=== PATIENT | female | born 1975 | race Caucasian/White ===

== ENCOUNTER → 2017-01-31 | Outpatient (CLI) | payer MEDICAID ==
[2017-01-31 15:19] LABS: Basophils % (A) 0 %; CH 30.7; CHCM 32.8; Eosinophils # (A) 0.2 k/uL (0-0.7); Eosinophils % (A) 3 %; HCT 44.6 % (34.0-46.0); HDW 2.43; Luc # (Auto) 0.11; Luc % (Auto) 1; Lymphocytes # (A) 2.2 k/uL (1.0-4.8); Lymphocytes % (A) 24 %; MCH 29.5 pg (25.0-35.0); MCHC 31.4 g/dL (31.0-37.0); Mean Platelet Volume 7.2; Monocytes # (A) 0.4 k/uL (0-1.0); Monocytes % (A) 4 %; Neutrophils # (A) 6.2 k/uL (1.3-7.7); Neutrophils % (A) 68 %; RBC 4.75 m/uL (3.80-5.40); RDW 13.6 % (11.5-15.5); WBC 9.2 k/uL (3.8-10.6); WBC (Perox) 8.82
[2017-01-31 15:33] LABS: ALT 41 U/L (9-52); AST 24 U/L (14-36); Alkaline Phosphatase 64 U/L (38-126); Anion Gap 7 mmol/L; Blood Urea Nitrogen 13 mg/dL (7-17); Calcium 9.4 mg/dL (8.4-10.2); Carbon Dioxide 25 mmol/L (22-30); Chloride 107 mmol/L (98-107); Glucose 107 mg/dL (74-99); Non-African American GFR(MDRD) >60 (>60 ml/min/1.73 sqM); Potassium 4.5 mmol/L (3.5-5.1); Sodium 139 mmol/L (137-145); Total Bilirubin 0.4 mg/dL (0.2-1.3); Total Protein 6.9 g/dL (6.3-8.2)
--- NOTE | 2017-01-31 16:06 | XR ---
EXAMINATION TYPE: XR hand complete bilateral DATE OF EXAM: 01/31/2017 COMPARISON: NONE HISTORY: 41-year-old female pain in bilateral hands for 3 to 4 weeks TECHNIQUE: 3 views each side FINDINGS: No acute fracture, subluxation, or dislocation. No soft tissue calcifications, soft tissue swelling, or marginal erosions. No significant osteoarthritic changes seen. No acute fracture, subluxation, or dislocation. IMPRESSION: No acute osseous abnormality seen on either side.
== END | disposition home or self-care (01) ==
LOC: RADXRMAIN 14:35
PROVIDERS: ATTEND Family Medicine
DX: M79.641 Pain in right hand (principal); Z68.38 Body mass index [BMI] 38.0-38.9, adult; R53.83 Other fatigue; R53.81 Other malaise; G43.909 Migraine, unspecified, not intractable, without status migrainosus
CPT/HCPCS: 80053; 84439; 84443; 85025

== ENCOUNTER → 2017-12-13 | Outpatient (CLI) | payer BC ==
--- NOTE | 2017-12-13 07:55 | US ---
EXAMINATION TYPE: US pelvis complete transvag DATE OF EXAM: 12/13/2017 COMPARISON: NONE CLINICAL HISTORY: R10.30 Lower abdominal pain. TECHNIQUE: . Transabdominal sonographic images of the pelvis were acquired. Transvaginal sonographi c images were medically necessary to better assess the following anatomy: adnexa Date of LMP: partial hysterectomy 2014 EXAM MEASUREMENTS: Uterus: Surgically absent Endometrial Stripe: Surgically absent Right Ovary: cm Left Ovary: Surgically absent 1. Uterus: Surgically absent 2. Endometrium: Surgically absent 3. Right Ovary: small follicles 1.2 x 1.4 x 1.3 cm 4. Left Ovary: Surgically absent 5. Bilateral Adnexa: rt 6. Posterior cul-de-sac: wnl rt adnexa possible calculus, in bowel loop. This could represent an appendix and measures 9 mm in thi ckness at the location of the patient's pain. Adjacent peristalsing loops of bowel are identified. IMPRESSION: 1. Tubular loop of bowel appearing to contain a calculus, possibly an appendicolith and the location of the patient's pinpoint right lower quadrant abdominal pain. CT is recommended to evaluate for appe ndicitis and further evaluate the presence of an appendicolith. Alternatively this could relate to te rminal ileitis or enteritis. Recommendations were communicated with the ordering office by the sonogr apher. 2. Surgical absence of the uterus and left ovary with small right ovarian simple appearing follicle.
--- NOTE | 2017-12-13 08:07 | US ---
EXAMINATION TYPE: US abdomen complete DATE OF EXAM: 12/13/2017 COMPARISON: NONE CLINICAL HISTORY: R10.30 Lower abdominal pain. EXAM MEASUREMENTS: Liver Length: 17.0 cm Gallbladder Wall: 0.1 cm CBD: 0.4 cm Spleen: 8.5 cm Right Kidney: 9.8 x 4.3 x 4.6 cm Left Kidney: 9.6 x 5.3 x 5.4 cm Pancreas: Obscured by bowel gas Liver: There is a hyperechoic hepatic echotexture, most commonly related to underlying hepatic steato sis. This limits evaluation for hepatic masses. No discrete masses seen on today's examination. Gallbladder: wnl Evidence for sonographic Patel's sign: No CBD: wnl Spleen: wnl Right Kidney: wnl Left Kidney: wnl Upper IVC: wnl Abd Aorta: wnl The liver is diffusely heterogenous. The intrahepatic portion of the IVC and proximal abdominal aort a are within normal limits. There is no evidence of cholelithiasis. Common bile duct is unremarkabl e. The visualized portions of the pancreas are homogenous. The spleen is unremarkable. Kidneys are symmetric and free of hydronephrosis. No renal lesions are seen. IMPRESSION: Findings suggesting mild degree of underlying hepatic steatosis. Correlate with liver fun ction tests.
--- NOTE | 2017-12-13 11:53 | CT ---
EXAMINATION TYPE: CT abdomen pelvis w con DATE OF EXAM: 12/13/2017 COMPARISON: NONE INDICATION: Lower Abdominal pain DLP: 1415.40 mGycm, Automated exposure control for dose reduction was used. CONTRAST: 100 ml mL of Isovue 300. Study performed with Oral Contrast TECHNIQUE: Axial images were obtained from above the diaphragm to the pubic rami in the axial plane a t 5 mm thick sections. Reconstructed images are reviewed on the computer in the coronal plane. FINDINGS: Limited CT sections are obtained the lung bases. The lung bases are clear. CT ABDOMEN: Liver: Normal Spleen: Normal Pancreas: Normal Adrenal glands: The adrenal glands are normal. Gallbladder: Normal Kidneys: No masses are evident. No hydronephrosis is present. No cysts are present. Delayed images were obtained through the kidneys, which remain unremarkable. Aorta: Vascular calcification is within the aorta. Inferior vena cava: Normal. CT PELVIS: Loops of bowel within the abdomen and pelvis are normal. There are loops of bowel which are incom pletely distended or lack oral contrast limiting their evaluation. Appendix: The appendix is normal. No periappendiceal inflammatory change or free fluid is evident. Sm all amount of air is within the normal caliber appendix. Urinary bladder: Normal. Genitourinary structures: Appears to be a small uterus is unremarkable. Adnexal regions are clear rec ord with the patient's surgical history. Osseous structures: No suspicious lytic or sclerotic lesions. Sacroiliac joint degenerative changes a re present. IMPRESSIONS: 1. Normal appendix. 2. No suspicious acute changes evident.
== END | disposition home or self-care (01) ==
LOC: RADUSWWP 06:44
PROVIDERS: ATTEND Family Medicine
DX: K37 Unspecified appendicitis (principal); R10.30 Lower abdominal pain, unspecified
CPT/HCPCS: 76700; 76856; 76830; 74177; Q9967

== ENCOUNTER → 2017-12-24 | Outpatient (CLI) | payer BC ==
--- NOTE | 2017-12-24 16:01 | NM ---
EXAMINATION TYPE: NM hepatobiliary w CCK DATE OF EXAM: 12/24/2017 COMPARISON: Ultrasound 12/13/2017 HISTORY: 42-year-old female with right upper quadrant pain TECHNIQUE: After the intravenous administration of 5.22 mCi Tc 99m Mebrofenin hepatobiliary scintigra phy is performed. Immediate images post injection. FINDINGS: There is satisfactory initial accumulation of tracer by the liver. The gallbladder is visualized wit hin 8 minutes. The small bowel activity is noted within 14 minutes. At one hour CCK was administered , patient was injected with 2.1 mcg of Kinevac, and gallbladder ejection fraction is calculated at 55 %, in the normal range. Therefore there is no scintigraphic evidence of cystic or common bile duct obstruction to suggest acute cholecystitis or gallbladder dyskinesia. IMPRESSION: Exam is within normal limits.
== END | disposition home or self-care (01) ==
LOC: RADNMMAIN 13:07
PROVIDERS: ATTEND Family Medicine
DX: R10.11 Right upper quadrant pain (principal)
CPT/HCPCS: 78227; A9537; J2805

== ENCOUNTER → 2019-10-28 | Outpatient (CLI) | payer BC | END | disposition home or self-care (01) | LOC: LABWHC1 09:32 | PROVIDERS: ATTEND Family Medicine | DX: U07.1 COVID-19 (principal) | CPT/HCPCS: 87635 ==

== ENCOUNTER → 2023-10-24 | Outpatient (CLI) | payer BC ==
--- NOTE | 2023-10-24 14:22 | US ---
EXAMINATION TYPE: US mass soft tissue chest/back DATE OF EXAM: 10/24/2023 COMPARISON: NONE CLINICAL INDICATION: Female, 48 years old with history of R22.2 LOCALIZED SWELLING, MASS AND LUMP, TR UNK; Lump lower left back x 2 years TECHNIQUE: Axial imaging of the area of palpable abnormality. FINDINGS: Hypoechoic area with shadowing seen left lower back area of lump 2.6 x 2.9 x 3.3 cm. IMPRESSION: Hypoechoic area with shadowing seen in the lower back area near patient's upper abnormal ity. No correlate on prior CT on 12/13/2017. Consider evaluation with MRI for further evaluation.
== END | disposition home or self-care (01) ==
LOC: RADUSWWP 13:32
PROVIDERS: ATTEND Family Medicine
DX: R22.2 Localized swelling, mass and lump, trunk (principal)

== ENCOUNTER → 2023-11-08 | Outpatient (CLI) | payer BC ==
--- NOTE | 2023-11-10 02:14 | MR ---
EXAMINATION TYPE: MR lumbar spine wo/w con DATE OF EXAM: 11/08/2023 COMPARISON: Recent targeted ultrasound October 24, 2023 HISTORY: Mass on left lower flank of back/ kidney area. 4 Markers placed around area of interest TECHNIQUE: Multiplanar, multisequence images of the lumbar spine is performed without and with IV contrast, util izing 10 mL intravenous Gadavist FINDINGS: Sagittal images of the lumbar spine show vertebral body heights and alignment to appear sat isfactory. Disc desiccation L4-L5 and L5-S1 levels. Disc space heights are preserved. The conus medu llaris is normal in position and signal ending at L1-L2 level. The bone marrow signal intensity is w ithin normal limits. No suspicious postcontrast enhancement is seen. Axial images show T12-L1 through L2-L3 levels to appear within normal limits. Axial images at L3-L4 level show mild to moderate facet arthropathy ligamentum flavum hypertrophy hola aterally. There is slight effacement of the left posterior lateral thecal sac. Axial images at L4-L5 level mild/moderate facet arthropathy bilaterally mildly effacing the right pos terolateral thecal sac. Axial images at L5-S1 level show mild/moderate left greater than right facet arthropathy. There is 8 mm round T2 hyperintense lesion right kidney axial image 33 favoring benign thin-walled cy st. Corresponding to recent ultrasound and palpable abnormality in the left posterior deep subcutaneous f at there is a circumscribed oval mass measuring 4.0 cm transversely by 4.3 cm AP diameter by 4.1 cm t ransversely of T1 and T2 hypointensity that is fairly isodense relative to muscle showing mild fairly homogeneous postcontrast enhancement best appreciated on fat saturation axial images. The lesion abu ts the lateral paraspinal muscle. IMPRESSION: Approximately 4.3 cm deep subcutaneous solid mass corresponding to recent ultrasound is n ot a lipoma, presence of T2 hypointense signal suggests fibrous component. Etiology uncertain. Advise d surgical referral to further evaluate.
== END | disposition home or self-care (01) ==
LOC: RADMRIMAIN 16:14
PROVIDERS: ATTEND Family Medicine
DX: R22.2 Localized swelling, mass and lump, trunk (principal)
CPT/HCPCS: 72158; A9585

== ENCOUNTER → 2023-12-21 | Outpatient (CLI) | payer BC ==
--- NOTE | 2024-01-02 16:45 | MR ---
EXAMINATION TYPE: MR wrist LT wo con DATE OF EXAM: 12/21/2023 COMPARISON: NONE HISTORY: 48-year-old female M25.532 Left wrist pain, swelling, and limited movement TECHNIQUE: Multiplanar, multisequence images of the left wrist were obtained without IV contrast. FINDINGS: No acute or healing fracture. Small effusion distal radioulnar joint. Minimal subchondral marrow sebastian a along the volar aspect of the ulnar head. There is a nearly full-thickness undersurface tear of the TFC near the foveal attachment. Some adjace nt prestyloid soft tissue swelling. There is fusiform thickening of the extensor carpi ulnaris along the ulnar groove. Some magic angle a rtifact due to ulnar deviation of the wrist. Trace fluid along the flexor pollicis longus at its crossover but no abnormal tendon thickening seen. Otherwise, the remaining dorsal extensor and volar flexor tendons of the wrist appears satisfactory. Median nerve at the distal wrist crease has a caliber of 8 sq mm, within normal limits. The scapholunate ligament appears intact. The lunotriquetral ligament appears intact. Mild degenerative spurring at the base of the first CMC joint. IMPRESSION: 1. Nearly full-thickness undersurface tear of the TFC near the foveal attachment. Some adjacent prest yloid soft tissue swelling. 2. ECU tendinosis. 3. Trace fluid along the flexor pollicis longus at the distal intersection probably physiologic. No s ignificant tendon thickening or surrounding inflammation seen.
== END | disposition home or self-care (01) ==
LOC: RADMRIMAIN 18:50
PROVIDERS: ATTEND Orthopaedic Surgery Hand Surgery
DX: M25.532 Pain in left wrist (principal)

== ENCOUNTER → 2024-07-07 | Outpatient (CLI) | payer BC ==
--- NOTE | 2024-07-07 17:11 | CT ---
EXAMINATION TYPE: CT abdomen pelvis wo/w con DATE OF EXAM: 07/07/2024 4:42 PM COMPARISON: 12/13/2017. CLINICAL INDICATION: Female, 49 years old with history of R10.9 ABD PAIN; left flank pain TECHNIQUE: Axial CT abdomen pelvis wo/w con;Sagittal and coronal reformats were created on a [employer] workstation. Contrast used:100ml mL of Isovue 300 without and with IV Contrast, (none if empty) Oral contrast used: with Oral Contrast (none if empty) CT DLP: 2218 mGycm, Automated exposure control for dose reduction was used. FINDINGS: LOWER CHEST: Unremarkable ABDOMEN LIVER: Diffusely hypoattenuating parenchyma. GALLBLADDER AND BILE DUCTS: Unremarkable. PANCREAS: Unremarkable. SPLEEN: Unremarkable. ADRENAL GLANDS: Unremarkable. KIDNEYS AND URETERS: No evidence of hydronephrosis or renal calculus. The ureters are unremarkable. PELVIS BLADDER: No evidence for wall thickening or mass given limitations of exam. REPRODUCTIVE: Unremarkable. ABDOMEN & PELVIS STOMACH AND BOWEL: No evidence of bowel obstruction. The appendix is normal. Large amount stool in th e cecum and ascending colon. PERITONEUM/RETROPERITONEUM: No evidence of pneumoperitoneum or free fluid. Omentum nodule measuring 1 0 mm series 3 image 41 new from prior. VASCULATURE: No evidence of aortic aneurysm. MUSCULOSKELETAL: No acute osseous abnormalities LYMPH NODES: No gross evidence for lymphadenopathy. SOFT TISSUE/ABDOMINAL WALL: Fat-containing umbilical hernia. Post interventional changes to the left posterior flank IMPRESSION: 1. No evidence for acute process. 2. Omental nodule measuring 10 mm not seen on prior CT imaging possibly postsurgical change of uncle ar etiology. Correlate with pathology of mass removal. Correlate with history of malignancy. 3. Fat-containing umbilical hernia.. 4. Hepatic steatosis. [facility], , 07/07/2024 5:09 PM
== END | disposition home or self-care (01) ==
LOC: RADCTMAIN 14:16
PROVIDERS: ATTEND Family Medicine
DX: K76.0 Fatty (change of) liver, not elsewhere classified (principal); K42.9 Umbilical hernia without obstruction or gangrene; R10.9 Unspecified abdominal pain
CPT/HCPCS: 74178; Q9967

== ENCOUNTER → 2024-08-13 | Outpatient (CLI) | payer BC ==
--- NOTE | 2024-08-19 10:56 | P.HOLTER ---
48 HOUR HOLTER MONITOR : INDICATION: Bradycardia, palpitations, R00.1 START DATE: 08/13/2024 END DATE: 08/15/2024 Patient was moitored for 2 days 24 minutes 7 seconds FINDINGS: Max HR: 135 BPM Min HR: 49 BPM Average HR: 79 BPM Supra-Ventricular ectopic burden: 6.7% Ventricular ectopic burden: 2.8% There were no signficant atrial fibrillation, atrial flutter, or sustained ventricular tachycardia episodes. There were no high-grade AV blocks There were no significant pauses greater than 2 seconds. Less than 0.03% of PAC burden, less than 0.01% PVC burden. CONCLUSION: Overall nonrevealing 48-hour extended Holter monitor with normal heart rate variability Please correlate clinically. Conner Odonnell MD, FACC, RPVI Thank you for allowing [facility] to participate in this patient's care. Feel free to reach out in case of any followup questions.
== END | disposition home or self-care (01) ==
LOC: RADECHMAIN 08:21
PROVIDERS: ATTEND Family Medicine
DX: R00.1 Bradycardia, unspecified (principal); R00.2 Palpitations
CPT/HCPCS: 93225